=== PATIENT | male | born 1945 | race Caucasian/White ===

== ENCOUNTER 2017-07-10 07:03 | Outpatient (CLI) | payer MEDICARE, OTHER ==
[~2017-07-10 07:03] MED LIST: APIX5TAB3 PO; CARV3.122 PO; LISI-604 PO
[2017-07-10 07:51] LABS: TOTAL HEMOGLOBIN 19.7 G/dl (14.0-18.0)
== END 2017-07-10 23:59 | disposition home or self-care (01) ==
LOC: RT 07:03
PROVIDERS: ATTEND Specialist
DX: R06.02 Shortness of breath (principal); F17.210 Nicotine dependence, cigarettes, uncomplicated; Z79.899 Other long term (current) drug therapy
CPT/HCPCS: 85018; 94010; 94727; 94729

== ENCOUNTER 2019-12-04 05:30 | Day surgery (SDC) | payer MEDICARE, OTHER ==
[2019-11-25 15:49] LABS: BASOPHILS # (AUTO) 0.1 X10'3 (0-0.2); BASOPHILS % (AUTO) 0.7 % (0-1); EOSINOPHILS # (AUTO) 0.3 X10'3 (0-0.9); EOSINOPHILS % (AUTO) 4.1 % (0-6); LYMPHOCYTES % (AUTO) 24.2 % (21-51); MEAN CORPUSCULAR HEMOGLOBIN 31.4 PG (27.0-31.0); MEAN CORPUSCULAR HGB CONC 34.1 g/dL (33.0-36.5); MEAN PLATELET VOLUME 7.4 FL (7.4-10.4); MONOCYTES # (AUTO) 0.8 X10'3 (0-0.9); MONOCYTES % (AUTO) 9.3 % (2-12); NEUTROPHILS % (AUTO) 61.7 % (42-75); PRE OP HEMATOCRIT 46.2 % (42.0-52.0); PRE OP HEMOGLOBIN 15.8 g/dL (14.0-17.9); PRE OP PLATELET COUNT 258 X10'3 (140-440); RED BLOOD COUNT 5.02 X10'6 (4.70-6.10); RED CELL DISTRIBUTION WIDTH 12.5 % (11.5-14.5)
[2019-11-25 15:59] LABS: ALBUMIN 4.1 G/DL (3.4-5.0); ALBUMIN/GLOBULIN RATIO 1.2 (1.1-1.5); ALKALINE PHOSPHATASE 79 IU/L (46-116); BLOOD UREA NITROGEN 25 MG/DL (7-18); BUN/CREATININE RATIO 17.6 (5.4-32.0); CALCIUM 9.2 MG/DL (8.5-10.1); CHLORIDE 107 MMOL/L (99-107); CREATININE 1.42 MG/DL (0.60-1.10); PRE OP ALT 27 U/L (30-65); PRE OP ANION GAP 8 (8-16); PRE OP AST 15 U/L (10-37); PRE OP BILIRUB, TOTAL 0.5 MG/DL (0.0-1.0); PRE OP GLUCOSE 95 MG/DL (70-104); PRE OP POTASSIUM 4.9 MMOL/L (3.4-5.1); PRE OP SODIUM 142 MMOL/L (135-145); TOTAL CARBON DIOXIDE 27.5 MMOL/L (24-32); TOTAL PROTEIN 7.4 G/DL (6.4-8.2); eGFR 49 ML/MIN
[~2019-12-04] VITALS: Ht 177.8 cm; Wt 86.2 kg
[~2019-12-04 05:30] MED LIST changes: +EPLE25TA4 PO; +albuterol 2.5 MG/3 ML nebule NEB ONE; +famotidine 20mg tablet PO ONE; +ringers solution, lacted 1,000 ML IV SCH
[2019-12-04 05:45] VITALS: BP 155/95
[2019-12-04] MEDS ORDERED: LIDOcaine 1% (10mg/ml) 2ml vial ONE (05:54)
[2019-12-04] MEDS ORDERED: ceFAZolin 2gm in dextrose, iso 50 ML IV ONE (06:00)
[2019-12-04] MEDS ORDERED: BUPIVAcaine/PF 2.5mg/ml (0.25%) 10ml vial ONE (06:36)
[2019-12-04] MEDS ORDERED: LIDOcaine 0.5% (5mg/ml) 50ml vial ONE (07:11)
[2019-12-04] MEDS ORDERED: midazolam 2 mg/2 ml injection ONE (07:14)
[2019-12-04 07:33] VITALS: BP 140/87
--- NOTE | 2019-12-04 07:33 | NUR ---
Received from OR via [facility], accompanied by Anesthesiologist DR Rodrigez and report given by Anesthesiolgist. PATIENT A&OX4, DENIES PAIN, V/S WNL, NEUROVASCULAR CHECKS INTACT, SCD ON, RIGHT WRIST DRESSING CDI ELEVATED WITH ICE BAG APPLIED. 20G LUE with LR IVF at 100cc/hr.
[2019-12-04] MEDS ORDERED: ringers solution, lacted 1,000 ML IV SCH (07:36)
[2019-12-04 07:40] VITALS: BP 142/84
[2019-12-04] MEDS ORDERED: morphine 2 MG/ML inj. syringe IV PRN (07:40)
[2019-12-04] MEDS ORDERED: ondansetron/PF 4mg/2ml inj IV PRN (07:40)
[2019-12-04] MEDS ORDERED: proCHLORperazine 10 MG/2 ml inj IV PRN (07:40)
[2019-12-04] MEDS ORDERED: morphine 4 MG/ML inj SYRINge IV PRN (07:40)
[2019-12-04] MEDS ORDERED: meperidine/PF 25mg/ml syringe IV PRN ×3 (07:40)
[2019-12-04 07:50] VITALS: BP 128/77
[2019-12-04 08:00] VITALS: BP 130/80
--- NOTE | 2019-12-04 08:33 | NUR ---
PATIENT A&OX4, DENIES PAIN, V/S WNL, NEUROVASCULAR CHECKS INTACT, SCD OFF, RIGHT WRIST DRESSING CDI ELEVATED WITH ICE BAG APPLIED. 20G IV D/C WITH NO COMPLICATIONS OBSERVED. I HAVE REVIEWED D/C INSTRUCTIONS WITH PATIENT AND FAMILY AND THEY HAVE VERBALIZED UNDERSTANDING. PATIENT D/C HOME WITH FAMILY TO TRANSPORT AND ALL BELONGINGS. Pt has pain meds already at home.
== END 2019-12-04 08:33 | disposition home or self-care (01) ==
LOC: PAS 05:30
PROVIDERS: ATTEND Orthopaedic Surgery Hand Surgery
DX: G56.01 Carpal tunnel syndrome, right upper limb (principal); I10 Essential (primary) hypertension; G47.30 Sleep apnea, unspecified; E66.9 Obesity, unspecified; Z68.27 Body mass index [BMI] 27.0-27.9, adult; Z95.0 Presence of cardiac pacemaker; Z98.890 Other specified postprocedural states; Z90.49 Acquired absence of other specified parts of digestive tract; Z85.46 Personal history of malignant neoplasm of prostate; Z72.89 Other problems related to lifestyle; Z79.899 Other long term (current) drug therapy; Z11.59 Encounter for screening for other viral diseases
CPT/HCPCS: 36415; 64721; 80053; 82948; 85025; J2001; J2250; J3490; J7120; U0003; A4215

== ENCOUNTER 2023-01-22 08:36 | Emergency (ER) | payer MEDICARE, OTHER ==
[~2023-01-22] VITALS: Ht 177.8 cm; Wt 79.4 kg
[~2023-01-22 08:36] MED LIST changes: -LISI-604 PO; +LISI5TAB22 PO; -albuterol 2.5 MG/3 ML nebule NEB ONE; -famotidine 20mg tablet PO ONE; -ringers solution, lacted 1,000 ML IV SCH
[2023-01-22 09:24] LABS: INR 1.1 INR; PROTHROMBIN TIME 11.4 SECONDS (9.0-12.0)
[2023-01-22] MEDS ORDERED: ATOR-2 PO (12:16)
[2023-01-22] MEDS ORDERED: MIRT-87 (12:17)
[2023-01-22] MEDS ORDERED: LOSA25TA41 PO (12:17)
--- NOTE | 2023-01-22 12:53 | NUR ---
Right forehead, arrived with hemostasis, DSD gauze old blood seen underneath. DSG changed by tech, observed two small less than 1 inch approximated lesions, clean, dark red would edges, hemostatis. Pt. stated bleeding stopped quickly at home, INR 1.1. Mechanical fall, tripped while gardening. Thinks had tetanus shot in past five years, not sure. at bedside. Pt. remains alert and oriented. Hourly rounding. Denies needs for pain meds, warm blanket etc. HOB 45 degrees, no neuro changes, no N/V, no neck pain, no photophobia all ER stay. Head CT negative.
--- NOTE | 2023-01-22 12:56 | NUR ---
Waiting to be seen, no new orders, calm and comfortable. at bedside.
[2023-01-22 12:58] VITALS: O2SAT 96
--- NOTE | 2023-01-22 13:03 | NUR ---
Hourly rounding to q 30 min, no changes, labs reviewed, head CT after triage, calm, denies significant pain, 1/2 to 1 NICHOLSON, HOB elevated, no N/V, no photophobia or nuchal rigidity. No cp, pulse regular, had ablation, stated no AF for years. Had ground level fall tripping while gardening no LOC. Waiting to see medical provider. Denies needs for blankets, etc.
[2023-01-22] MEDS ORDERED: LIDOcaine 1% 30ml preserv. free vial IJ STA (13:48)
[2023-01-22] MEDS ORDERED: TETanus/Pertussis (Acell)/Diphther VAC/PF (Tdap-Adult) 0.5ml syringe IMVAC ONE (13:50)
[2023-01-22 14:55] VITALS: BP 141/86; PULSE 63; RESP 18; TEMP 98.1
--- NOTE | 2023-01-22 15:01 | NUR ---
Pt. d/c, no neuro changes, VSS, head sutured, curved area dn straight wound well approximated, open to air, hemostasis. Had tdap information sheet and all follow up and instructions for wound care understood by patient and . Steady gait, driving. Pain 1/10 at suture sites, stated, mild. D/C by waitstaff captain.
== END 2023-01-22 15:24 | disposition home or self-care (01) ==
LOC: ER 08:36
DX: S01.81XA Laceration without foreign body of other part of head, initial encounter (principal); W18.39XA Other fall on same level, initial encounter; Y93.89 Activity, other specified; Y92.89 Other specified places as the place of occurrence of the external cause; Y99.8 Other external cause status
CPT/HCPCS: 12013; 36415; 70450; 85610; 90471; 90715; 99285

== ENCOUNTER 2023-03-12 02:51 | Inpatient (IN) | payer MEDICARE, OTHER ==
[~2023-03-12] VITALS: Ht 177.8 cm; Wt 83.0 kg
[~2023-03-12 02:51] MED LIST changes: +ATOR-2 PO; -EPLE25TA4 PO; -LISI5TAB22 PO; +LOSA25TA41 PO; +MIRT-87 PO
[2023-03-12 04:51] LABS: BASOPHILS % (AUTO) 0.4 % (0-1); EOSINOPHILS # (AUTO) 0.1 X10'3 (0-0.9); EOSINOPHILS % (AUTO) 0.9 % (0-6); HEMATOCRIT 42.8 % (42.0-52.0); HEMOGLOBIN 14.6 g/dl (14.0-17.9); LYMPHOCYTES # (AUTO) 1.1 X10'3 (1.1-4.8); LYMPHOCYTES % (AUTO) 15.3 % (21-51); MEAN CORPUSCULAR HEMOGLOBIN 31.4 PG (27.0-31.0); MEAN CORPUSCULAR HGB CONC 34.1 g/dL (33.0-36.5); MEAN CORPUSCULAR VOLUME 92.2 FL (78-98); MEAN PLATELET VOLUME 7.9 FL (7.4-10.4); MONOCYTES % (AUTO) 13.4 % (2-12); NEUTROPHILS # (AUTO) 5.1 X10'3 (1.8-7.7); PLATELET COUNT 172 X10'3 (140-440); RED BLOOD COUNT 4.65 X10'6 (4.70-6.10); RED CELL DISTRIBUTION WIDTH 12.8 % (11.5-14.5); WHITE BLOOD COUNT 7.4 X10'3 (4.5-11.0)
[2023-03-12 05:05] LABS: ALANINE AMINOTRANSFERASE 25 U/L (12-78); ALBUMIN 3.3 G/DL (3.4-5.0); ALBUMIN/GLOBULIN RATIO 1.1 (1.1-1.5); ALKALINE PHOSPHATASE 66 IU/L (46-116); ANION GAP 8 (8-16); ASPARTATE AMINO TRANSFERASE 20 U/L (10-37); BILIRUBIN,TOTAL 0.8 MG/DL (0.1-1.0); BLOOD UREA NITROGEN 21 MG/DL (7-18); BUN/CREATININE RATIO 15.2 (10.0-20.0); CALCIUM 8.2 MG/DL (8.5-10.1); CHLORIDE 106 MMOL/L (99-107); CREATININE 1.38 MG/DL (0.60-1.10); GLUCOSE 105 MG/DL (70-104); POTASSIUM 4.4 MMOL/L (3.5-5.1); SODIUM 140 MMOL/L (135-145); TOTAL CARBON DIOXIDE 25.9 MMOL/L (24-32); TOTAL PROTEIN 6.2 G/DL (6.4-8.2); eCRCL 46 ML/MIN; eGFR 50 ML/MIN
[2023-03-12] MEDS ORDERED: albuterol 2.5 MG/3 ML nebule NEB ONE (05:25)
[2023-03-12] MEDS ORDERED: normal saline 1000ML IV soln IVB ONE (05:25)
[2023-03-12] MEDS ORDERED: azithromycin/NS 500mg/250ml 250 ML IV ONE (05:25)
[2023-03-12] MEDS ORDERED: methylPREDNISolone sod succ 125mg/2ml vial IV ONE (05:25)
[2023-03-12 05:57] VITALS: PULSE 84; RESP 22; O2SAT 95
[2023-03-12 06:08] VITALS: PULSE 78; RESP 20; O2SAT 98
[2023-03-12] MEDS ORDERED: ibuprofen 200mg tablet PO ONE (06:15)
--- NOTE | 2023-03-12 06:23 | NUR ---
EKG ATTEMPTED BY NIGHT EMT, PER CHARGE NURSE MARIANO, MULTIPLE ATTEMPTS FOR EKG. UNABLE TO GET AN ACCURATE READ PER PT IS TOO SHAKEY. THIS EMT WILL ATTEMPT AGAIN THIS MORNING.
[2023-03-12] MEDS ORDERED: iohexol 300mg/ml 100ml inj. ONE (07:07)
[2023-03-12] MEDS ORDERED: acetaminophen 325mg tablet PO ONE (07:50)
[2023-03-12] MEDS ORDERED: dexamethasone sod phosphate 10mg/ml inj IV STA (07:50)
[2023-03-12] MEDS ORDERED: CefTRIAXone 2gm/D5W 50ml BAG 50 ML IV SCH (08:00)
[2023-03-12] MEDS ORDERED: CefTRIAXone 2gm/D5W 50ml BAG 50 ML IV ONE (08:00)
[2023-03-12] MEDS ORDERED: magnesium hydroxide 30ml (MOM) UD suspension PO PRN (09:20)
[2023-03-12] MEDS ORDERED: magnesium Cl slow-release 64mg tablet PO PRN (09:20)
[2023-03-12] MEDS ORDERED: potassium Cl 20 mEq SR tablet PO PRN ×2 (09:20)
[2023-03-12] MEDS ORDERED: ondansetron/PF 4mg/2ml inj IV PRN (09:20)
[2023-03-12] MEDS ORDERED: REMDESIVIR INJ 200 MG in normal saline 100ml IV soln 100 ML IV ONE (09:20)
[2023-03-12] MEDS ORDERED: mag hydrox/Alum hydrox/simeth 30ml oral suspension PO PRN (09:20)
[2023-03-12] MEDS ORDERED: diphenhydrAMINE 25mg capsule PO PRN (09:20)
[2023-03-12] MEDS ORDERED: potassium Cl 40MEQ/1/2NS 520ml 520 ML IV PRN (09:20)
[2023-03-12] MEDS ORDERED: magnesium 2GM in 50ml NS 50 ML IV PRN (09:20)
[2023-03-12] MEDS ORDERED: acetaminophen 325mg tablet PO PRN (09:20)
[2023-03-12] MEDS ORDERED: magnesium 4gm in 100ml NS 100 ML IV PRN (09:20)
[2023-03-12] MEDS ORDERED: APIX5TAB3 PO (14:44)
[2023-03-12] MEDS ORDERED: CARV6.2553 PO (14:44)
--- NOTE | 2023-03-12 14:54 | NUR ---
PT REQUESTING PAIN MEDICATION FOR SORE THROAT. DR. BOSSMAN CORTEZ.
[2023-03-12] MEDS ORDERED: benzocaine/menthol oral lozeng 1 EACH BOX MM ONE (15:10)
--- NOTE | 2023-03-12 15:12 | NUR ---
SPOKE TO DR. KEITA ABOUT PT SORE THROAT. MD ORDERS FOR COUGH DROP.
[2023-03-12] MEDS: HALLS - SOOTHE MENTHOL 1.8 MG cough drop LOZENGE MM PRN (16:56)
[2023-03-12] MEDS: dexamethasone 4mg/ml inj IM SCH ×2 (17:10→23:35)
[2023-03-12] MEDS: docusate sod 100mg capsule PO SCH (20:00)
[2023-03-12] MEDS: K and/or MAG REPLACEMENT MC SCH (20:00)
--- NOTE | 2023-03-12 21:30 | NUR ---
Patient in room ORTH[facility] 4006. I have received report from SELENE Gramajo RN and had the opportunity to ask questions and assume patient care.
[2023-03-12 21:31] VITALS: BP 132/70; PULSE 61; RESP 16; TEMP 96.7; O2SAT 95
--- NOTE | 2023-03-12 21:45 | NUR ---
pt brought to room from er via gurney accompanied by er staff. oriented pt to room and call light with verbalized understanding. tele monitor appiled to pt. will continue to monitor.
[2023-03-13 06:14] LABS: BASOPHILS % (AUTO) 0.1 % (0-1); EOSINOPHILS % (AUTO) 0 % (0-6); HEMATOCRIT 40.8 % (42.0-52.0); HEMOGLOBIN 13.9 g/dl (14.0-17.9); LYMPHOCYTES # (AUTO) 0.6 X10'3 (1.1-4.8); LYMPHOCYTES % (AUTO) 4.6 % (21-51); MEAN CORPUSCULAR HEMOGLOBIN 31.2 PG (27.0-31.0); MEAN CORPUSCULAR HGB CONC 34.1 g/dL (33.0-36.5); MEAN CORPUSCULAR VOLUME 91.6 FL (78-98); MONOCYTES # (AUTO) 0.6 X10'3 (0-0.9); MONOCYTES % (AUTO) 4.8 % (2-12); NEUTROPHILS % (AUTO) 90.5 % (42-75); PLATELET COUNT 180 X10'3 (140-440); RED BLOOD COUNT 4.45 X10'6 (4.70-6.10); RED CELL DISTRIBUTION WIDTH 12.9 % (11.5-14.5); WHITE BLOOD COUNT 13.3 X10'3 (4.5-11.0)
--- NOTE | 2023-03-13 06:14 | NUR ---
Problems reprioritized. Patient report given, questions answered & plan of care reviewed with EDMUND Atkins.
[2023-03-13 06:26] LABS: ALANINE AMINOTRANSFERASE 16 U/L (12-78); ALKALINE PHOSPHATASE 55 IU/L (46-116); ANION GAP 11 (8-16); ASPARTATE AMINO TRANSFERASE 19 U/L (10-37); BILIRUBIN,TOTAL 0.4 MG/DL (0.1-1.0); BLOOD UREA NITROGEN 31 MG/DL (7-18); CALCIUM 8.6 MG/DL (8.5-10.1); CHLORIDE 106 MMOL/L (99-107); CREATININE 1.41 MG/DL (0.60-1.10); GLUCOSE 163 MG/DL (70-104); MAGNESIUM 2.2 MG/DL (1.5-2.4); POTASSIUM 4.2 MMOL/L (3.5-5.1); SODIUM 141 MMOL/L (135-145); TOTAL CARBON DIOXIDE 24.5 MMOL/L (24-32); TOTAL PROTEIN 6.1 G/DL (6.4-8.2); eCRCL 45 ML/MIN; eGFR 49 ML/MIN
--- NOTE | 2023-03-13 06:41 | NUR ---
Patient in room ORTHO 4006. I have received report from EDMUND White and had the opportunity to ask questions and assume patient care.
[2023-03-13] MEDS: K and/or MAG REPLACEMENT MC SCH ×2 (08:00→19:20)
[2023-03-13] MEDS ORDERED: enoxaparin 40mg/0.4ml syringe SUBCUT SCH (08:00)
[2023-03-13] MEDS: docusate sod 100mg capsule PO SCH ×2 (08:51→21:13)
[2023-03-13] MEDS: CefTRIAXone/D5W-Rocephin 1gm 50 ML IV SCH (08:51)
[2023-03-13] MEDS: dexamethasone 4mg/ml inj IM SCH ×2 (09:17→14:53)
[2023-03-13 10:00] VITALS: BP 124/60; PULSE 77; RESP 18; TEMP 97.6; O2SAT 92
[2023-03-13] MEDS: HALLS - SOOTHE MENTHOL 1.8 MG cough drop LOZENGE MM PRN (11:03)
[2023-03-13] MEDS: azithromycin/NS 500mg/250ml 250 ML IV SCH (11:04)
[2023-03-13] MEDS: REMDESIVIR INJ 100 MG in normal saline 100ml IV soln 100 ML IV SCH (12:54)
[2023-03-13 18:00] VITALS: BP 125/66; PULSE 61; RESP 18; TEMP 97.1; O2SAT 91
--- NOTE | 2023-03-13 18:23 | NUR ---
Problems reprioritized. Patient report given, questions answered & plan of care reviewed with SANDEEP Ferrell.
[2023-03-13 20:00] VITALS: RESP 18; O2SAT 89
[2023-03-13] MEDS: apixaban 5mg tablet PO SCH (20:00)
[2023-03-13] MEDS: carvedilol 6.25mg tablet PO SCH (20:00)
[2023-03-13 20:15] VITALS: RESP 18; O2SAT 92
[2023-03-13] MEDS: mirtazapine 15mg tablet PO SCH (21:00)
[2023-03-13] MEDS: atorvastatin 20mg tablet PO SCH (21:00)
[2023-03-13 22:00] VITALS: BP 92/44; PULSE 61; RESP 18; TEMP 98; O2SAT 91
[2023-03-14] MEDS: dexamethasone 4mg/ml inj IM SCH ×4 (00:25→23:59)
[2023-03-14 06:00] VITALS: BP 118/66; PULSE 63; RESP 16; TEMP 96.6; O2SAT 93
--- NOTE | 2023-03-14 06:20 | NUR ---
Problems reprioritized. Patient report given, questions answered & plan of care reviewed with EDMUND mueller.
[2023-03-14 06:27] LABS: BASOPHILS % (AUTO) 0 % (0-1); EOSINOPHILS % (AUTO) 0 % (0-6); HEMATOCRIT 39.7 % (42.0-52.0); HEMOGLOBIN 13.4 g/dl (14.0-17.9); LYMPHOCYTES # (AUTO) 0.5 X10'3 (1.1-4.8); LYMPHOCYTES % (AUTO) 3.2 % (21-51); MEAN CORPUSCULAR HEMOGLOBIN 30.8 PG (27.0-31.0); MEAN CORPUSCULAR HGB CONC 33.7 g/dL (33.0-36.5); MEAN CORPUSCULAR VOLUME 91.6 FL (78-98); MEAN PLATELET VOLUME 8.5 FL (7.4-10.4); MONOCYTES # (AUTO) 0.6 X10'3 (0-0.9); MONOCYTES % (AUTO) 3.5 % (2-12); NEUTROPHILS # (AUTO) 15.1 X10'3 (1.8-7.7); NEUTROPHILS % (AUTO) 93.3 % (42-75); PLATELET COUNT 202 X10'3 (140-440); RED BLOOD COUNT 4.34 X10'6 (4.70-6.10); RED CELL DISTRIBUTION WIDTH 12.6 % (11.5-14.5); WHITE BLOOD COUNT 16.2 X10'3 (4.5-11.0)
--- NOTE | 2023-03-14 06:31 | NUR ---
Patient in room ORTH[facility] 4006. I have received report from SANDEEP Ferrell and had the opportunity to ask questions and assume patient care.
[2023-03-14 06:44] LABS: ALANINE AMINOTRANSFERASE 19 U/L (12-78); ALBUMIN 2.8 G/DL (3.4-5.0); ALBUMIN/GLOBULIN RATIO 0.9 (1.1-1.5); ALKALINE PHOSPHATASE 57 IU/L (46-116); ANION GAP 9 (8-16); ASPARTATE AMINO TRANSFERASE 11 U/L (10-37); BILIRUBIN,TOTAL 0.4 MG/DL (0.1-1.0); BLOOD UREA NITROGEN 38 MG/DL (7-18); BUN/CREATININE RATIO 31.1 (10.0-20.0); CALCIUM 8.5 MG/DL (8.5-10.1); CHLORIDE 109 MMOL/L (99-107); CREATININE 1.22 MG/DL (0.60-1.10); GLUCOSE 139 MG/DL (70-104); MAGNESIUM 2.2 MG/DL (1.5-2.4); POTASSIUM 4.2 MMOL/L (3.5-5.1); SODIUM 142 MMOL/L (135-145); TOTAL CARBON DIOXIDE 23.8 MMOL/L (24-32); TOTAL PROTEIN 5.8 G/DL (6.4-8.2); eCRCL 52 ML/MIN; eGFR 58 ML/MIN
[2023-03-14] MEDS: K and/or MAG REPLACEMENT MC SCH ×2 (08:00→20:00)
[2023-03-14] MEDS: azithromycin/NS 500mg/250ml 250 ML IV SCH (09:09)
[2023-03-14] MEDS: losartan 25mg tablet PO SCH (09:10)
[2023-03-14] MEDS: apixaban 5mg tablet PO SCH ×2 (09:10→21:27)
[2023-03-14] MEDS: HALLS - SOOTHE MENTHOL 1.8 MG cough drop LOZENGE MM PRN (09:11)
[2023-03-14] MEDS: docusate sod 100mg capsule PO SCH ×2 (09:12→21:26)
[2023-03-14] MEDS: carvedilol 6.25mg tablet PO SCH ×2 (09:12→21:28)
[2023-03-14 10:00] VITALS: BP 122/68; PULSE 65; RESP 19; TEMP 98.6; O2SAT 94
[2023-03-14] MEDS: CefTRIAXone/D5W-Rocephin 1gm 50 ML IV SCH (11:17)
[2023-03-14] MEDS: REMDESIVIR INJ 100 MG in normal saline 100ml IV soln 100 ML IV SCH (12:16)
[2023-03-14 18:00] VITALS: BP 123/65; PULSE 83; RESP 15; TEMP 98.6; O2SAT 94
--- NOTE | 2023-03-14 18:29 | NUR ---
Problems reprioritized. Patient report given, questions answered & plan of care reviewed with SANDEEP Fajardo.
[2023-03-14] MEDS: atorvastatin 20mg tablet PO SCH (21:27)
[2023-03-14] MEDS: mirtazapine 15mg tablet PO SCH (21:28)
[2023-03-14 22:00] VITALS: BP 125/72; PULSE 78; RESP 16; TEMP 97.8; O2SAT 91
[2023-03-15 06:00] VITALS: BP 113/61; PULSE 73; RESP 18; TEMP 96.8; O2SAT 92
--- NOTE | 2023-03-15 06:25 | NUR ---
report to Renea SHAFFER
--- NOTE | 2023-03-15 06:39 | NUR ---
Patient in room ORTH[facility] 4006. I have received report from Scotty and had the opportunity to ask questions and assume patient care.
--- NOTE | 2023-03-15 06:40 | NUR ---
I agree with SPINE NURSE physical assessment.
[2023-03-15 07:31] LABS: BASOPHILS # (AUTO) 0.1 X10'3 (0-0.2); BASOPHILS % (AUTO) 0.4 % (0-1); EOSINOPHILS % (AUTO) 0 % (0-6); HEMATOCRIT 38.2 % (42.0-52.0); LYMPHOCYTES # (AUTO) 0.4 X10'3 (1.1-4.8); LYMPHOCYTES % (AUTO) 2.9 % (21-51); MEAN CORPUSCULAR HEMOGLOBIN 30.9 PG (27.0-31.0); MEAN PLATELET VOLUME 8.1 FL (7.4-10.4); MONOCYTES # (AUTO) 0.4 X10'3 (0-0.9); MONOCYTES % (AUTO) 2.4 % (2-12); NEUTROPHILS # (AUTO) 13.6 X10'3 (1.8-7.7); NEUTROPHILS % (AUTO) 94.3 % (42-75); PLATELET COUNT 199 X10'3 (140-440); RED CELL DISTRIBUTION WIDTH 12.9 % (11.5-14.5); WHITE BLOOD COUNT 14.4 X10'3 (4.5-11.0)
[2023-03-15] MEDS: dexamethasone 4mg/ml inj IM SCH ×3 (07:34→23:49)
[2023-03-15] MEDS: docusate sod 100mg capsule PO SCH ×2 (07:36→20:00)
[2023-03-15] MEDS: carvedilol 6.25mg tablet PO SCH ×2 (07:36→20:57)
[2023-03-15] MEDS: apixaban 5mg tablet PO SCH ×2 (07:36→20:57)
[2023-03-15] MEDS: losartan 25mg tablet PO SCH (07:36)
[2023-03-15] MEDS: CefTRIAXone/D5W-Rocephin 1gm 50 ML IV SCH (07:37)
[2023-03-15 07:55] LABS: ALANINE AMINOTRANSFERASE 23 U/L (12-78); ALBUMIN 2.8 G/DL (3.4-5.0); ALBUMIN/GLOBULIN RATIO 1.1 (1.1-1.5); ALKALINE PHOSPHATASE 51 IU/L (46-116); ANION GAP 8 (8-16); ASPARTATE AMINO TRANSFERASE 20 U/L (10-37); BILIRUBIN,TOTAL 0.5 MG/DL (0.1-1.0); BLOOD UREA NITROGEN 38 MG/DL (7-18); BUN/CREATININE RATIO 32.8 (10.0-20.0); CALCIUM 8.2 MG/DL (8.5-10.1); CHLORIDE 109 MMOL/L (99-107); CREATININE 1.16 MG/DL (0.60-1.10); GLUCOSE 132 MG/DL (70-104); MAGNESIUM 2.2 MG/DL (1.5-2.4); POTASSIUM 4.4 MMOL/L (3.5-5.1); SODIUM 143 MMOL/L (135-145); TOTAL CARBON DIOXIDE 25.8 MMOL/L (24-32); TOTAL PROTEIN 5.3 G/DL (6.4-8.2); eCRCL 55 ML/MIN; eGFR 61 ML/MIN
[2023-03-15] MEDS: K and/or MAG REPLACEMENT MC SCH ×2 (08:00→20:00)
[2023-03-15] MEDS: REMDESIVIR INJ 100 MG in normal saline 100ml IV soln 100 ML IV SCH (08:47)
[2023-03-15] MEDS: HALLS - SOOTHE MENTHOL 1.8 MG cough drop LOZENGE MM PRN (09:57)
[2023-03-15 10:00] VITALS: BP 110/61; PULSE 60; RESP 16; TEMP 97.1; O2SAT 93
[2023-03-15] MEDS: azithromycin/NS 500mg/250ml 250 ML IV SCH (10:00)
[2023-03-15 18:00] VITALS: BP 125/67; PULSE 64; RESP 16; TEMP 98.6; O2SAT 93
--- NOTE | 2023-03-15 18:25 | NUR ---
Problems reprioritized. Patient report given, questions answered & plan of care reviewed with Magda.
--- NOTE | 2023-03-15 18:40 | NUR ---
Patient in room ORTH[facility] 4006. I have received report from EDMUND Meier and had the opportunity to ask questions and assume patient care.
[2023-03-15 20:00] VITALS: RESP 18; O2SAT 95
[2023-03-15] MEDS: mirtazapine 15mg tablet PO SCH (20:57)
[2023-03-15] MEDS: atorvastatin 20mg tablet PO SCH (20:58)
[2023-03-15] MEDS ORDERED: benzonatate 100mg capsule PO PRN (21:20)
[2023-03-15 22:00] VITALS: BP 133/70; PULSE 52; RESP 18; TEMP 96.2; O2SAT 95
[2023-03-16 06:00] VITALS: BP 115/63; PULSE 54; RESP 16; TEMP 98.1; O2SAT 93
--- NOTE | 2023-03-16 06:20 | NUR ---
Problems reprioritized. Patient report given, questions answered & plan of care reviewed with EDMUND Meier.
--- NOTE | 2023-03-16 06:51 | NUR ---
Patient in room ORTH[facility] 4006. I have received report from Magda and had the opportunity to ask questions and assume patient care.
[2023-03-16] MEDS: K and/or MAG REPLACEMENT MC SCH (07:17)
[2023-03-16] MEDS: dexamethasone 4mg/ml inj IM SCH (07:37)
[2023-03-16] MEDS: apixaban 5mg tablet PO SCH (07:37)
[2023-03-16] MEDS: docusate sod 100mg capsule PO SCH (07:37)
[2023-03-16] MEDS: CefTRIAXone/D5W-Rocephin 1gm 50 ML IV SCH (07:37)
[2023-03-16] MEDS: losartan 25mg tablet PO SCH (08:00)
[2023-03-16] MEDS: carvedilol 6.25mg tablet PO SCH (08:00)
[2023-03-16] MEDS: REMDESIVIR INJ 100 MG in normal saline 100ml IV soln 100 ML IV SCH (08:11)
[2023-03-16] MEDS: azithromycin/NS 500mg/250ml 250 ML IV SCH (09:16)
[2023-03-16 09:53] LABS: BASOPHILS % (AUTO) 0.1 % (0-1); EOSINOPHILS % (AUTO) 0 % (0-6); HEMATOCRIT 42.4 % (42.0-52.0); HEMOGLOBIN 14.1 g/dl (14.0-17.9); LYMPHOCYTES # (AUTO) 0.4 X10'3 (1.1-4.8); LYMPHOCYTES % (AUTO) 3.4 % (21-51); MEAN CORPUSCULAR HEMOGLOBIN 30.5 PG (27.0-31.0); MEAN CORPUSCULAR HGB CONC 33.2 g/dL (33.0-36.5); MEAN CORPUSCULAR VOLUME 91.9 FL (78-98); MEAN PLATELET VOLUME 8.2 FL (7.4-10.4); MONOCYTES # (AUTO) 0.2 X10'3 (0-0.9); MONOCYTES % (AUTO) 1.7 % (2-12); NEUTROPHILS # (AUTO) 11.1 X10'3 (1.8-7.7); NEUTROPHILS % (AUTO) 94.8 % (42-75); PLATELET COUNT 220 X10'3 (140-440); RED BLOOD COUNT 4.62 X10'6 (4.70-6.10); WHITE BLOOD COUNT 11.7 X10'3 (4.5-11.0)
[2023-03-16 10:00] VITALS: BP 131/72; PULSE 61; RESP 16; TEMP 97.3; O2SAT 96
--- NOTE | 2023-03-16 10:18 | NUR ---
Initial: Pt admit for COVID-19 PNA with hypoxemia. Currently on a regular diet and eating well, documented with average 82% PO intake since admit meeting 98% estimated energy needs and 84% estimated protein needs. LBM 03/15 per EMR. No nutrition intervention implemented at this time. Will continue to follow and make recommendations as appropriate. Recommendations: 1) Continue regular diet 2) Monitor need for ONS/additional protein 3) Routine bowel care 4) Weekly scaled weights Addendum: 03/16/23 at [address] Amended: Links added.
[2023-03-16 10:21] LABS: ALANINE AMINOTRANSFERASE 34 U/L (12-78); ALBUMIN/GLOBULIN RATIO 1.1 (1.1-1.5); ALKALINE PHOSPHATASE 56 IU/L (46-116); ANION GAP 9 (8-16); ASPARTATE AMINO TRANSFERASE 17 U/L (10-37); BILIRUBIN,TOTAL 0.6 MG/DL (0.1-1.0); BLOOD UREA NITROGEN 41 MG/DL (7-18); BUN/CREATININE RATIO 31.3 (10.0-20.0); CALCIUM 8.5 MG/DL (8.5-10.1); CHLORIDE 107 MMOL/L (99-107); CREATININE 1.31 MG/DL (0.60-1.10); GLUCOSE 183 MG/DL (70-104); MAGNESIUM 2.3 MG/DL (1.5-2.4); POTASSIUM 4.3 MMOL/L (3.5-5.1); SODIUM 142 MMOL/L (135-145); TOTAL CARBON DIOXIDE 25.9 MMOL/L (24-32); TOTAL PROTEIN 5.7 G/DL (6.4-8.2); eCRCL 49 ML/MIN; eGFR 53 ML/MIN
[2023-03-17] MEDS ORDERED: azithromycin 250mg tablet PO SCH (08:00)
== END 2023-03-16 15:43 | disposition home or self-care (01) | DRG 177 ==
LOC: ER 02:52 → ED HOLD 09:26 → ORTHO 4S 21:20
PROVIDERS: ADMIT Internal Medicine; ATTEND Internal Medicine
PROC: BW2F1ZZ Computerized Tomography (CT Scan) of Neck using Low Osmolar Contrast (ICD-10-PCS; principal; 2023-03-12)
PROC: XW033E5 Introduction of Remdesivir Anti-infective into Peripheral Vein, Percutaneous Approach, New Technology Group 5 (ICD-10-PCS; 2023-03-12)
DX: U07.1 COVID-19 (principal); J12.82 Pneumonia due to coronavirus disease 2019; J96.01 Acute respiratory failure with hypoxia; I48.91 Unspecified atrial fibrillation; I10 Essential (primary) hypertension; K21.9 Gastro-esophageal reflux disease without esophagitis; E78.5 Hyperlipidemia, unspecified; J02.9 Acute pharyngitis, unspecified; J98.01 Acute bronchospasm; S06.0X0A Concussion without loss of consciousness, initial encounter; X58.XXXA Exposure to other specified factors, initial encounter; Y93.89 Activity, other specified; Y92.89 Other specified places as the place of occurrence of the external cause; Y99.8 Other external cause status; Z87.891 Personal history of nicotine dependence; Z79.899 Other long term (current) drug therapy; Z88.6 Allergy status to analgesic agent
CPT/HCPCS: 36415; 70491; 71045; 80053; 83605; 83735; 83880; 84132; 84484; 85025; 87040; 87081; 87502; 87503; 87811; 94640; 94760; 99285; G0378; J0456; J0696; J1100; J1650; J2930; J3490; J7030; Q9967

== ENCOUNTER 2023-03-19 03:56 | Emergency (ER) | payer MEDICARE, OTHER ==
[~2023-03-19] VITALS: Ht 177.8 cm; Wt 84.0 kg
[~2023-03-19 03:56] MED LIST changes: -CARV3.122 PO; +CARV6.2553 PO
[2023-03-19] MEDS ORDERED: chlorproMAZINE 25mg/ml inj. IV ONE (06:35)
--- NOTE | 2023-03-19 07:30 | NUR ---
DAUGHTER AT BEDSIDE. WENT OVER PLAN AND REQUIREMENTS FOR COVID SAFETY AT THE HOSPITAL.
[2023-03-19] MEDS ORDERED: iohexol 300mg/ml 100ml inj. ONE (08:06)
[2023-03-19 09:18] LABS: BASOPHILS % (AUTO) 0.1 % (0-1); EOSINOPHILS # (AUTO) 0.3 X10'3 (0-0.9); EOSINOPHILS % (AUTO) 3.1 % (0-6); HEMATOCRIT 42.7 % (42.0-52.0); HEMOGLOBIN 14.9 g/dl (14.0-17.9); LYMPHOCYTES # (AUTO) 0.9 X10'3 (1.1-4.8); LYMPHOCYTES % (AUTO) 10.4 % (21-51); MEAN CORPUSCULAR HEMOGLOBIN 31.4 PG (27.0-31.0); MEAN CORPUSCULAR HGB CONC 34.8 g/dL (33.0-36.5); MEAN CORPUSCULAR VOLUME 90.1 FL (78-98); MEAN PLATELET VOLUME 7.8 FL (7.4-10.4); MONOCYTES # (AUTO) 0.9 X10'3 (0-0.9); MONOCYTES % (AUTO) 10.6 % (2-12); NEUTROPHILS # (AUTO) 6.2 X10'3 (1.8-7.7); NEUTROPHILS % (AUTO) 75.8 % (42-75); PLATELET COUNT 264 X10'3 (140-440); RED BLOOD COUNT 4.74 X10'6 (4.70-6.10); RED CELL DISTRIBUTION WIDTH 12.2 % (11.5-14.5); WHITE BLOOD COUNT 8.2 X10'3 (4.5-11.0)
[2023-03-19 09:46] LABS: ALANINE AMINOTRANSFERASE 47 U/L (12-78); ALBUMIN/GLOBULIN RATIO 1.1 (1.1-1.5); ALKALINE PHOSPHATASE 75 IU/L (46-116); ANION GAP 10 (8-16); ASPARTATE AMINO TRANSFERASE 25 U/L (10-37); BILIRUBIN,TOTAL 1.1 MG/DL (0.1-1.0); BLOOD UREA NITROGEN 23 MG/DL (7-18); BUN/CREATININE RATIO 19.5 (10.0-20.0); CALCIUM 8.3 MG/DL (8.5-10.1); CHLORIDE 103 MMOL/L (99-107); CREATININE 1.18 MG/DL (0.60-1.10); GLUCOSE 75 MG/DL (70-104); LIPASE 48 U/L (16-77); POTASSIUM 4.2 MMOL/L (3.5-5.1); SODIUM 139 MMOL/L (135-145); TOTAL CARBON DIOXIDE 25.7 MMOL/L (24-32); TOTAL PROTEIN 5.7 G/DL (6.4-8.2); eCRCL 54 ML/MIN; eGFR 60 ML/MIN
[2023-03-19] MEDS ORDERED: PROC-8 PO (10:13)
[2023-03-19 12:31] VITALS: BP 143/90; PULSE 87; RESP 16; TEMP 97.7; O2SAT 95
== END 2023-03-19 11:35 | disposition home or self-care (01) ==
LOC: ER 03:57
DX: U07.1 COVID-19 (principal)
CPT/HCPCS: 36415; 71045; 74177; 80053; 83690; 83735; 84145; 84484; 85025; 93005; 96374; 99285; J3230; J3490; Q9967; J7030

== ENCOUNTER 2023-05-27 06:05 | Day surgery (SDC) | payer MEDICARE, OTHER ==
[2023-05-24 12:10] LABS: BASOPHILS % (AUTO) 0.5 % (0-1); EOSINOPHILS # (AUTO) 0.3 X10'3 (0-0.9); EOSINOPHILS % (AUTO) 3.2 % (0-6); LYMPHOCYTES # (AUTO) 1.6 X10'3 (1.1-4.8); LYMPHOCYTES % (AUTO) 19.4 % (21-51); MEAN CORPUSCULAR HEMOGLOBIN 30.7 PG (27.0-31.0); MEAN CORPUSCULAR HGB CONC 34.2 g/dL (33.0-36.5); MEAN CORPUSCULAR VOLUME 89.8 FL (78-98); MEAN PLATELET VOLUME 7.4 FL (7.4-10.4); MONOCYTES # (AUTO) 0.9 X10'3 (0-0.9); MONOCYTES % (AUTO) 10.2 % (2-12); NEUTROPHILS # (AUTO) 5.6 X10'3 (1.8-7.7); NEUTROPHILS % (AUTO) 66.7 % (42-75); PRE OP HEMATOCRIT 44.2 % (42.0-52.0); PRE OP HEMOGLOBIN 15.1 g/dL (14.0-17.9); PRE OP PLATELET COUNT 256 X10'3 (140-440); PRE OP WHITE BLOOD COUNT 8.5 10'3 (4.8-10.8); RED BLOOD COUNT 4.92 X10'6 (4.70-6.10); RED CELL DISTRIBUTION WIDTH 13.4 % (11.5-14.5)
[2023-05-24 12:27] LABS: ALBUMIN 3.8 G/DL (3.4-5.0); ALBUMIN/GLOBULIN RATIO 1.2 (1.1-1.5); ALKALINE PHOSPHATASE 76 IU/L (46-116); BLOOD UREA NITROGEN 18 MG/DL (7-18); CALCIUM 9.1 MG/DL (8.5-10.1); CHLORIDE 105 MMOL/L (99-107); PRE OP ALT 30 U/L (30-65); PRE OP ANION GAP 7 (8-16); PRE OP AST 21 U/L (10-37); PRE OP BILIRUB, TOTAL 0.8 MG/DL (0.0-1.0); PRE OP GLUCOSE 84 MG/DL (70-104); PRE OP POTASSIUM 4.5 MMOL/L (3.4-5.1); PRE OP SODIUM 142 MMOL/L (135-145); TOTAL CARBON DIOXIDE 30.3 MMOL/L (24-32); eCRCL 53 ML/MIN; eGFR 59 ML/MIN
[2023-05-27] VITALS (10 sets, daily range): BP systolic 99–137; BP diastolic 46–82; PULSE 51–70; RESP 14–22; TEMP 98.8; O2SAT 93–98
[~2023-05-27] VITALS: Ht 177.8 cm; Wt 84.1 kg
[~2023-05-27 06:05] MED LIST changes: +DOCUMENT DATE & TIME OF BETA-BLOCKER PO ONE; +cefazolin 2gm/D5W 100mL 100 ML IV ONE; +famotidine 20mg tablet PO ONE; +ringers solution, lacted 1,000 ML IV SCH
[2023-05-27] MEDS ORDERED: BUPIVAcaine/PF 2.5mg/ml (0.25%) 10ml vial SQ ONE (08:15)
[2023-05-27] MEDS ORDERED: fentaNYL/PF 50MCG/1 ML 2ML syringe ONE (08:49)
[2023-05-27] MEDS ORDERED: midazolam 1 mg/ML 2ml injection ONE (09:10)
[2023-05-27] MEDS ORDERED: meperidine/PF 25mg/ml syringe IV PRN ×3 (09:15)
[2023-05-27] MEDS ORDERED: morphine 2 MG/ML inj. syringe IV PRN (09:15)
[2023-05-27] MEDS ORDERED: proCHLORperazine 10 MG/2 ml inj IV PRN (09:15)
[2023-05-27] MEDS ORDERED: labetalol 20mg/4ml (5mg/ml) syringe IV PRN (09:15)
[2023-05-27] MEDS ORDERED: acetaminophen 1,000mg/100ml IV 100 ML IV ONE (09:15)
[2023-05-27] MEDS ORDERED: ondansetron/PF 4mg/2ml inj IV PRN (09:15)
[2023-05-27] MEDS ORDERED: hydrALAZINE 20mg/ml inj. IV PRN (09:15)
[2023-05-27] MEDS ORDERED: morphine 4 MG/ML inj SYRINge IV PRN (09:15)
[2023-05-27] MEDS ORDERED: ringers solution, lacted 1,000 ML IV SCH (09:15)
[2023-05-27] MEDS ORDERED: ketorolac tromethamine 15mg/ml inj. IV ONE (09:15)
== END 2023-05-27 10:15 | disposition home or self-care (01) ==
LOC: PAS 06:05
PROVIDERS: ATTEND Orthopaedic Surgery Hand Surgery
DX: G56.02 Carpal tunnel syndrome, left upper limb (principal); M65.322 Trigger finger, left index finger; I10 Essential (primary) hypertension; E78.5 Hyperlipidemia, unspecified; M19.90 Unspecified osteoarthritis, unspecified site; G47.33 Obstructive sleep apnea (adult) (pediatric); I48.91 Unspecified atrial fibrillation; Z85.46 Personal history of malignant neoplasm of prostate; Z95.810 Presence of automatic (implantable) cardiac defibrillator; Z90.49 Acquired absence of other specified parts of digestive tract; Z98.890 Other specified postprocedural states; Z90.79 Acquired absence of other genital organ(s); Z79.01 Long term (current) use of anticoagulants; Z79.899 Other long term (current) drug therapy; Z72.89 Other problems related to lifestyle
CPT/HCPCS: 26055; 36415; 64721; 80053; 82948; 85025; 93005; J0690; J2250; J3010; J3490; J7030; J7120; Z7506; Z7512; A4215; A6449